=== PATIENT | male | born 1955 | race Caucasian/White ===

== ENCOUNTER 2018-01-15 13:51 | Emergency (ER) | payer SELFPAY ==
--- NOTE | 2018-01-15 18:41 | ED Physician Chart ---
ED Chief Complaint/HPI - Patient Information Date Seen:: 01/15/18 Time Seen:: 14:28 Chief Complaint:: painful R buddhist rash History of Present Illness:: painful R buddhist rash and nontender submental soft tissue mass. patient had paresthesias prior to the rash coming out. Allergies:: Allergies Allergy/AdvReac Type Severity Reaction Status Date / Time codeine Allergy Verified 01/15/18 14:27 Sulfa (Sulfonamide Allergy Verified 01/15/18 14:27 Antibiotics) Vitals:: Vital Signs - 8 hr 01/15/18 01/15/18 14:28 15:28 Temp 97.9 F HR 65 64 RR 17 18 BP 128/73 130/79 O2 Sat % 98 ED Review of Systems - Review of Systems General/Constitutional: No fever, No chills, No weight loss, No weakness, No diaphoresis, No edema, No loss of appetite Skin: Rash Head: No headache, No light-headedness Eyes: No loss of vision, No pain, No diplopia ENT: No earache, No nasal drainage, No sore throat, No tinnitus Neck: No neck pain, No swelling, No thyromegaly, No stiffness, Mass noted, Other Cardio Vascular: No chest pain, No palpitations, No PND, No orthopnea, No edema Pulmonary: No SOB, No cough, No sputum, No wheezing GI: No nausea, No vomiting, No diarrhea, No pain, No melena, No hematochezia, No constipation, No hematemesis G/U: No dysuria, No frequency, No hematuria Musculoskeletal: No bone or joint pain, No back pain, No muscle pain Endocrine: No polyuria, No polydipsia Psychiatric: No prior psych history, No depression, No anxiety, No suicidal ideation Hematopoietic: No bruising, No lymphadenopathy Allergic/Immuno: No urticaria, No angioedema Neurological: No syncope, No focal symptoms, No weakness, No paresthesia, No headache, No seizure, No dizziness, No confusion, No vertigo ED Past Medical History - Past Medical History Obtainable: Yes Past Medical History: No significant medical hx Family Medical History - Family Member Mother Ethnicity: Non- Living Status: Hx Family Cancer: Yes ED Physical Exam - Physical Examination General/Constitutional: Awake, Well-developed, well-nourished, Alert, No distress, GCS 15, Non-toxic appearing, Ambulatory Head: Atraumatic Eyes: Lids, conjuctiva normal, PERRL, EOMI Other Skin comments:: R forehead and buddhist vesicular rash. No eye involvement at all. ENMT: External ears, nose nl Neck: Nontender, No nuchal rigidity Other Neck comments:: soft, fleshy, less than dime sized soft tissue mass in the midline of the submental area. not a lymph node. Respiratory: Nl effort/Exclusion, Clear to Auscultation Cardio Vascular: RRR, No murmur, gallop, rubs, NL S1 S2 Neuro/Psych: Alert/oriented, Normal sensory exam, Normal motor strength, Judgement/insight normal, Mood normal ED Assessment - Assessment General Assessment: patient doing well. tolerated Toradol. ED Septic Shock - . Is Septic Shock (SBP<90, OR Lactate>4 mmol\L) present?: No - <6hrs of presentation: Vital Signs: Vital Signs - 8 hr 01/15/18 01/15/18 14:28 15:28 Temp 97.9 F HR 65 64 RR 17 18 BP 128/73 130/79 O2 Sat % 98 ED Reassessment (Disposition) - Reassessment Reassessment Condition:: Unchanged - Diagnosis Diagnosis:: Shingles Submental soft tissue mass - Aftercare/Follow up Instructions Aftercare/Follow-Up Instructions:: Refer to Discharge Instructions Notes:: no alcohol or tylenol while on acyclovir. patient told to go to the ER if the rash starts to involve his eye at all. patient told to follow up with his primary care physician (who he did not visit since he has no insurance and decided instead to visit the ER) Medication Prescribed:: Acyclovir 800 mg po 5 times a day. # 50 Medrol dose pack (4 mg) - Patient Disposition Discharge/Transfer:: Home Condition at Disposition:: Stable, Unchanged
== END 2018-01-15 15:29 | disposition home or self-care (01) ==
LOC: ER 13:51
DX: B02.9 Zoster without complications (principal); R22.1 Localized swelling, mass and lump, neck; Z88.2 Allergy status to sulfonamides; Z88.5 Allergy status to narcotic agent
CPT/HCPCS: 99283; 96372; J1885; Z7502

== ENCOUNTER 2018-10-16 09:23 | Emergency (ER) | payer MEDICAID ==
--- NOTE | 2018-10-16 09:36 | ED Physician Chart ---
ED Chief Complaint/HPI - Patient Information Date Seen:: 10/16/18 Time Seen:: 09:30 Chief Complaint:: Intermittent vertigo for one day. History of Present Illness:: Pt came in by private auto because of onset of intermittent vertigo for one day. Vertigo occurs when he has change in head position, especially when he change from standing to supine position. No hearing loss or tinnitus. No fever. No headace. No N/V. No weakness or numbness. Allergies:: Allergies Allergy/AdvReac Type Severity Reaction Status Date / Time codeine Allergy Verified 01/15/18 14:27 Sulfa (Sulfonamide Allergy Verified 01/15/18 14:27 Antibiotics) Vitals:: see Nurse Note. Historian:: Patient Family MD/PCP:: Dr. Zhang. LMP:: N/A Review:: Nurse's Note Reviewed ED Review of Systems - Review of Systems General/Constitutional: No fever, No weakness, No edema Skin: No skin lesions, No rash, No bruising Head: No headache, No light-headedness Eyes: No loss of vision, No pain, No diplopia ENT: No earache, No nasal drainage, No sore throat Neck: No neck pain, No swelling, No stiffness Cardio Vascular: No chest pain Pulmonary: No SOB, No cough, No wheezing GI: No nausea, No vomiting, No pain G/U: No dysuria, No frequency, No hematuria Musculoskeletal: No bone or joint pain Endocrine: No polydipsia Psychiatric: No prior psych history Hematopoietic: No bruising, No lymphadenopathy Allergic/Immuno: No urticaria, No angioedema Neurological: No syncope, No focal symptoms, No weakness, No headache, No seizure, No confusion, Vertigo ED Past Medical History - Past Medical History Past Medical History: HTN, Dyslipidemia, Thyroid disorder Family History: Heart disease, Diabetes Melitus, HTN Social History: Non Smoker, No Alcohol, No Drug Use, , Employed, Other ( lives with his .) Employment:: clinical administrator. Surgical History: other (hemorrhoid surgery about 10 y/a.) Psychiatricy History: None Medication: Reviewed Family Medical History - Family Member Mother Ethnicity: Non- Living Status: Hx Family Cancer: Yes ED Physical Exam - Physical Examination General/Constitutional: Awake, Well-developed, well-nourished (male), Alert, No distress, Non-toxic appearing Other Gen/Cons comments:: Breathes comfortably, speaks clearly, and interacts appropriately. Head: Atraumatic Eyes: Lids, conjuctiva normal, PERRL, EOMI Skin: Nl inspection, No skin lesions, No ecchymosis, Well hydrated, No lymphadenopathy ENMT: External ears, nose nl, TM canals nl, Nasal exam nl, Oropharynx nl Neck: Nontender, Full ROM w/o pain, No nuchal rigidity, No mass Respiratory: Nl effort/Exclusion, Clear to Auscultation, No Wheeze/Rhonchi/Rales Cardio Vascular: RRR, No murmur, gallop, rubs GI: No tenderness/rebounding/guarding, No organomegaly, Normal BS's, Nondistended, No mass/bruits Other GI comments:: Abdomen is obese but soft. Extremities: No tenderness or effusion, No edema Neuro/Psych: Alert/oriented (oriented x 3), DTR's symmetric, Normal sensory exam , Normal motor strength, Judgement/insight normal, Mood normal, No focal deficits Other Neuro/Psych comments:: CN II to XII are intact. Cerebellar exam (F to N, SARWAT): normal. Positive Halpike -Orla manuver. ED Septic Shock - . Is Septic Shock (SBP<90, OR Lactate>4 mmol\L) present?: No ED Reassessment (Disposition) - Reassessment Reassessment:: 1055 Pt has been repeatedly evaluated. Pt feels much better without vertigo. Pt requests to go home now and does not want further observation/management in hospital. Aftercare instructions have been given. His will drive pt home and care for him. Reassessment Condition:: Improved - Diagnosis Diagnosis:: Benign paroxysmal positional vertigo (BPPV). Stable and currently asymptomatic. - Aftercare/Follow up Instructions Aftercare/Follow-Up Instructions:: Refer to Discharge Instructions Notes:: Bed rest for today. Drowsiness precautions given with the use of meclizine and the symptom of vertigo. F/U with PCP Dr. Zhang in one day for recheck. Return to ER immediately if condition worsens or if any further questions/problems. Medication Prescribed:: Meclizine 25 mg tab one tab po q6h prn vertigo. D-15 R-0 - Patient Disposition Discharge/Transfer:: Home Time:: 11:00 Condition at Disposition:: Stable, Improved
== END 2018-10-16 11:12 | disposition home or self-care (01) ==
LOC: ER 09:23
DX: H81.10 Benign paroxysmal vertigo, unspecified ear (principal); I10 Essential (primary) hypertension; E78.5 Hyperlipidemia, unspecified; E03.9 Hypothyroidism, unspecified; Z88.2 Allergy status to sulfonamides; Z88.5 Allergy status to narcotic agent